=== PATIENT | male | born 1950 | race African-American/Black ===

== ENCOUNTER 2016-08-26 11:25 | Outpatient (CLI) | payer MEDICARE, OTHER ==
[2016-08-26 12:26] LABS: #Basophils 0.1 thou/uL (0.0-0.2); #Eosinphils 0.2 thou/uL (0.0-0.7); #Lymphocytes 2.3 thou/uL (1.20-3.40); #Monocytes 0.5 thou/uL (0.11-0.59); #Neutrophils 3.6 thou/uL (1.40-6.50); %Basophils 1.2 % (0.0-1.0); %Eosinophils 2.4 % (0.0-10.0); %Lymphocytes 35.1 % (21.0-51.0); %Monocytes 7.5 % (0.0-10.0); %Neutrophils 53.8 % (42.0-75.0); Hemoglobin 16.1 g/dL (14.0-18.0); Mean Corpuscular HGB CONC 32.9 g/dL (32.0-36.0); Mean Corpuscular Hemoglobin 28.5 pg (27.0-31.0); Mean Corpuscular Volume 86.6 fl (80.0-94.0); Mean Platelet Volume 9.8 fL (7.4-10.4); Platelet Count 197 thou/uL (130-400); RBC Distribution Width 13.9 % (11.5-14.5); Red Blood Cell (RBC) Count 5.66 mill/uL (4.70-6.10); White Blood Cell (WBC) Count 6.6 thou/uL (4.8-10.8)
[2016-08-26 12:31] LABS: Blood, Urine Negative (Negative); Clarity Clear (Clear); Glucose, Urine (Dipstick) Negative (Negative); Leukocyte Negative (Negative); Nitrite Negative (Negative); Protein, Urine (Dipstick) Negative (Neg-Trace); Urobilinogen 0.2 mg/dL (0.2-1.0); pH, Urine 6.5 (5.0-9.0)
[2016-08-26 12:33] LABS: Bilirubin Negative (Negative); Icto Negative (Negative)
[2016-08-26 12:52] LABS: ALT (SGPT) 16 U/L (8-55); AST (SGOT) 19 U/L (5-34); Albumin 4.3 g/dL (3.4-4.8); Alkaline Phosphatase 116 U/L (40-150); Anion Gap 15 mmol/L (10-20); BUN (Urea Nitrogen) 11 mg/dL (8.4-25.7); Bilirubin, Total 0.4 mg/dL (0.2-1.2); Calc. Creatinine Clearance 0 mL/min (70-130); Calcium 9.3 mg/dL (7.8-10.44); Carbon Dioxide 24 mmol/L (23-31); Cardiac Risk 5.1 (Less than 4.5); Chloride 105 mmol/L (98-107); Cholesterol 159 mg/dl (< 200 Desired); Estimated GFR-MDRD 83; Globulin 2.6 g/dL (2.4-3.5); Glucose 110 mg/dL (80-115); HDL Cholesterol 31 mg/dL (>60 Neg Risk); LDL Cholesterol, Calculated 60 mg/dL; Potassium 3.6 mmol/L (3.5-5.1); Protein, Total 6.9 g/dL (5.8-8.1); Sodium 140 mmol/L (136-145); Triglycerides 340 mg/dL (Less than 150)
== END 2016-08-26 11:26 ==
LOC: NAVSJIPCSP 11:25
PROVIDERS: ATTEND Internal Medicine
DX: E78.1 Pure hyperglyceridemia (principal); N30.90 Cystitis, unspecified without hematuria; E87.6 Hypokalemia
CPT/HCPCS: 36415; 80053; 80061; 81003; 85025; 87086

== ENCOUNTER 2016-11-18 08:44 | Outpatient (CLI) | payer MEDICARE, OTHER ==
[2016-11-18 12:45] LABS: Cardiac Risk 3.8 (Less than 4.5)
== END 2016-11-18 08:45 | disposition home or self-care (01) ==
LOC: NAVSJIPCSP 08:44
PROVIDERS: ATTEND Internal Medicine
DX: E78.5 Hyperlipidemia, unspecified (principal)
CPT/HCPCS: 36415; 80061

== ENCOUNTER 2016-12-05 15:23 | Emergency (ER) | payer MEDICARE, OTHER ==
[2016-12-05] MEDS ORDERED: Lidocaine 1% 20 ML MDV ONE (15:46)
[2016-12-05] MEDS ORDERED: cefTRIAXone\\ROCEPHIN 1 GM VIAL ONE (15:46)
[2016-12-05] MEDS ORDERED: Acetaminophen 500 MG TAB ONE (15:55)
== END 2016-12-05 16:02 | disposition home or self-care (01) ==
LOC: NAV ERS 15:23
DX: K04.7 Periapical abscess without sinus (principal); I10 Essential (primary) hypertension
CPT/HCPCS: 96372; J0696; J2001

== ENCOUNTER 2016-12-06 11:15 | Emergency (ER) | payer MEDICARE, OTHER ==
[~2016-12-06 11:15] MED LIST: Iopamidol 370 76% 100 ML VIAL ONE
[2016-12-06] MEDS ORDERED: Ketorolac Tromethamine 30 MG/ML VIAL ONE (11:45)
[2016-12-06 12:08] LABS: #Basophils 0.1 thou/uL (0.0-0.2); #Lymphocytes 0.9 thou/uL (1.20-3.40); #Monocytes 0.5 thou/uL (0.11-0.59); #Neutrophils 5.2 thou/uL (1.40-6.50); %Basophils 0.8 % (0.0-1.0); %Eosinophils 0.3 % (0.0-10.0); %Lymphocytes 13.1 % (21.0-51.0); %Monocytes 7.2 % (0.0-10.0); %Neutrophils 78.6 % (42.0-75.0); Hemoglobin 15.8 g/dL (14.0-18.0); Mean Corpuscular HGB CONC 32.8 g/dL (32.0-36.0); Mean Corpuscular Hemoglobin 27.8 pg (27.0-31.0); Mean Corpuscular Volume 84.8 fl (80.0-94.0); Mean Platelet Volume 8.6 fL (7.4-10.4); Platelet Count 214 thou/uL (130-400); RBC Distribution Width 12.8 % (11.5-14.5); Red Blood Cell (RBC) Count 5.67 mill/uL (4.70-6.10); White Blood Cell (WBC) Count 6.7 thou/uL (4.8-10.8)
[2016-12-06 12:10] LABS: Anion Gap 16 mmol/L (10-20); BUN (Urea Nitrogen) 15 mg/dL (8.4-25.7); Calc. Creatinine Clearance 0 mL/min (70-130); Calcium 9.6 mg/dL (7.8-10.44); Carbon Dioxide 24 mmol/L (23-31); Chloride 99 mmol/L (98-107); Estimated GFR-MDRD 68; Glucose 100 mg/dL (80-115); Potassium 3.3 mmol/L (3.5-5.1); Sodium 136 mmol/L (136-145)
--- NOTE | 2016-12-06 13:09 | CT ---
CONTRAST ENHANCED CT IMAGES SOFT TISSUE NECK: HISTORY: Swelling for 2 days. FINDINGS: Contrast-enhanced CT of the soft tissue neck demonstrates soft tissue swelling lateral to the right mandibular body both medial and lateral to the right platysma. No definite evidence of abscess seen . There does appear to be an area of lucency involving the 2nd right mandibular molar root apex con cerning for periapical abscess within the mandible. There is extensive beam-hardening artifact from dental fillings. The thyroid gland is unremarkable. The common and internal carotid arteries appear to be patent. Multilevel cervical changes of spond ylosis seen involving C3-4, C4-5, C5-6, and C6-7. IMPRESSION: Inflammatory change and edema surrounding the right mandible laterally. This may be originating fro m a right mandibular molar apical abscess. POS: [facility]
[2016-12-06] MEDS ORDERED: Potassium Chloride 20 MEQ TAB ONE (13:18)
[2016-12-06] MEDS ORDERED: Clindamycin 300 MG/2 ML VIAL ONE (13:21)
[2016-12-06] MEDS ORDERED: Sodium Chloride 0.9% 0 ML ONE ×2 (13:21→13:22)
[2016-12-06] MEDS ORDERED: Sodium Chloride 0.9% 100 ML ONE (13:23)
== END 2016-12-06 13:58 | disposition home or self-care (01) ==
LOC: NAV ERS 11:15
DX: K04.7 Periapical abscess without sinus (principal); I10 Essential (primary) hypertension; Z79.899 Other long term (current) drug therapy
CPT/HCPCS: 70491; 80048; 85025; 96365; 96375; J1885; J3490; J7050

== ENCOUNTER 2018-04-08 07:49 | Emergency (ER) | payer MEDICARE, OTHER ==
[2018-04-08] MEDS ORDERED: Pantoprazole 40 MG VIAL ONE (08:23)
[2018-04-08] MEDS ORDERED: Promethazine HCl 25 MG/ML VIAL ONE (08:23)
[2018-04-08] MEDS ORDERED: Sodium Chloride 0.9% 500 ML ONE (08:24)
[2018-04-08] MEDS ORDERED: Ondansetron PF 4 MG/2 ML Vial ONE (08:51)
--- NOTE | 2018-04-08 09:01 | RAD ---
ACUTE ABDOMINAL SERIES: Date: 04-08-18 Provided Clinical History: Abdominal pain. FINDINGS: No comparison. The cardiac and mediastinal silhouette is within normal limits. There is elevation of the left hemidi aphragm of unknown chronicity. There is conspicuous distention of bowel within the left upper quadran t. This could potentially represent colon and indicate volvulus. Gastric distention is also possible but felt less likely. No confluent airspace disease, pleural fluid, or pneumothorax apparent. No evid ence for pneumoperitoneum. Conspicuous lumbar spine degenerative change. IMPRESSION: Findings suspicious for colonic volvulus. Correlation with CT is recommended. Findings communicated t sally Alvarado in the Emergency Department at 8:44 a.m. 04-08-18. Code CR POS: [facility]
[2018-04-08 09:04] LABS: #Basophils 0.1 thou/uL (0.0-0.2); #Eosinphils 0.1 thou/uL (0.0-0.7); #Lymphocytes 1.9 thou/uL (1.20-3.40); #Monocytes 0.4 thou/uL (0.11-0.59); #Neutrophils 3.7 thou/uL (1.40-6.50); %Basophils 1.1 % (0.0-1.0); %Eosinophils 1.4 % (0.0-10.0); %Lymphocytes 30.4 % (21.0-51.0); %Monocytes 6.9 % (0.0-10.0); %Neutrophils 60.3 % (42.0-75.0); Hemoglobin 16.2 g/dL (14.0-18.0); Mean Corpuscular Hemoglobin 28.5 pg (27.0-31.0); Mean Corpuscular Volume 86.3 fL (78.0-98.0); Mean Platelet Volume 9.5 fL (7.4-10.4); Platelet Count 197 thou/uL (130-400); RBC Distribution Width 12.7 % (11.5-14.5); Red Blood Cell (RBC) Count 5.67 mill/uL (4.70-6.10); White Blood Cell (WBC) Count 6.2 thou/uL (4.8-10.8)
[2018-04-08 09:12] LABS: Bilirubin Small (Negative); Blood, Urine Negative (Negative); Clarity Clear (Clear); Glucose, Urine (Dipstick) Negative (Negative); Leukocyte Negative (Negative); Nitrite Negative (Negative); Protein, Urine (Dipstick) Negative (Neg-Trace); Urobilinogen 0.2 mg/dL (0.2-1.0); pH, Urine 6.5 (5.0-9.0)
[2018-04-08 09:13] LABS: ALT (SGPT) 19 U/L (8-55); AST (SGOT) 25 U/L (5-34); Albumin 4.4 g/dL (3.4-4.8); Alkaline Phosphatase 92 U/L (40-150); Anion Gap 13 mmol/L (10-20); BUN (Urea Nitrogen) 18 mg/dL (8.4-25.7); Bilirubin, Total 0.4 mg/dL (0.2-1.2); Calc. Creatinine Clearance 0 mL/min (70-130); Carbon Dioxide 22 mmol/L (23-31); Chloride 112 mmol/L (98-107); Estimated GFR-MDRD 71; Globulin 2.7 g/dL (2.4-3.5); Glucose 126 mg/dL (80-115); Lipase 10 U/L (8-78); Potassium 4.1 mmol/L (3.5-5.1); Protein, Total 7.1 g/dL (5.8-8.1); Sodium 143 mmol/L (136-145)
[2018-04-08] MEDS ORDERED: Fentanyl 100 MCG/2 ML VIAL ONE (10:14)
--- NOTE | 2018-04-08 10:30 | CT ---
CONTRAST ENHANCED CT IMAGES ABDOMEN AND PELVIS: HISTORY: Patient with abdominal pain, question of volvulus. FINDINGS: Contrast-enhanced CT images of the abdomen and pelvis demonstrate the lung bases to demonstrate some minimal atelectasis. No evidence of free intraperitoneal air is seen. The liver contains a 1.6 cm area of peripherally enhancing lesion posterior to the gallbladder and he patic segment #5. This may represent a hemangioma. Other possibilities could include metastatic dis ease or primary hepatic neoplasm. Correlation with pre- and postcontrast-enhanced dynamic MRI of the liver may be of use. The spleen is unremarkable. The gallbladder and pancreas are unremarkable. Adrenal glands unremarka ble. No definite evidence of renal parenchymal mass is seen. No definite evidence of lymphadenopathy is seen. There is a large gas-filled segment of the sigmoid colon which is concerning for sigmoid volvulus. A normal appendix is visualized. There is a small umbilical hernia with some bowel loops which have extended into it without evidence of bowel obstruction. Also noted is a left inguinal hernia with fat herniating into the left inguinal hernia. Multilevel lumbar facet and degenerative disk changes are seen. IMPRESSION: 1. Peripherally enhancing 1.6 cm hepatic mass. Further workup may be of use. 2. Sigmoid volvulus. 3. Umbilical and left inguinal hernias. POS: [facility]
== END 2018-04-08 10:41 | disposition short-term general hospital (02) ==
LOC: NAV ERS 07:49
DX: K56.2 Volvulus (principal); K40.90 Unilateral inguinal hernia, without obstruction or gangrene, not specified as recurrent; K42.9 Umbilical hernia without obstruction or gangrene; I10 Essential (primary) hypertension; Z79.82 Long term (current) use of aspirin; Z79.899 Other long term (current) drug therapy
CPT/HCPCS: 74022; 74177; 80053; 81003; 82150; 83690; 84484; 85025; 93005; 96365; 96375; C9113; J2405; J2550; J3010; J7050

== ENCOUNTER 2018-07-04 08:58 | Outpatient (CLI) | payer MEDICARE, OTHER ==
[2018-07-04] MEDS ORDERED: Iopamidol 370 76% 100 ML VIAL ONE (09:00)
--- NOTE | 2018-07-04 10:45 | CT ---
CT of the chest and abdomen with IV contrast INDICATION: Liver mass and history of prostate cancer COMPARISON: CT of the abdomen with contrast dated April 08, 2018 FINDINGS: CHEST: LUNGS: There is area of subsegmental volume loss involving the superior segment of the left lower lob e which is nonspecific. No suspicious pulmonary nodule is evident. Area of subsegmental volume loss is also present within the lingula. Mediastinum: No pathologically enlarged lymph nodes are seen within the mediastinum, hilar or axillar y regions. ABDOMEN: Liver: The 1.6 cm hypodensity within the right hepatic lobe, adjacent to the gallbladder fossa, is st able in size. The lesion demonstrates areas of peripheral nodular discontinuous enhancement with progressive central filling on the multiphase CT evaluation. This is most consistent with a small hem angioma. No additional focal lesion is identified. Adrenal glands: Normal. Pancreas: Normal. Spleen: Normal. Kidneys: There are small nonobstructing renal calculi bilaterally. There is a 2 mm stone within the s uperior pole the left kidney. There are 2.5 mm stone seen within the right mid kidney. No hydronephrosis is demonstrated. Bowel: There is postsurgical change of a partial colectomy. Small bowel is of normal caliber. Retroperitoneum: No lymphadenopathy. Osseous structures: No acute osseous abnormality. IMPRESSION: 1. Hypodense mass within the right hepatic lobe is consistent with a hemangioma. 2. Bilateral nephrolithiasis 3. Nonspecific subsegmental volume loss within the lingula and left lower lobe. 4. Postsurgical change of a partial colectomy.
== END 2018-07-04 08:59 | disposition home or self-care (01) ==
LOC: NAV CT 08:58
PROVIDERS: ATTEND Internal Medicine
DX: R16.0 Hepatomegaly, not elsewhere classified (principal)
CPT/HCPCS: 36415; 71260; 74170; 82565; Q9967